=== PATIENT | female | born 1990 | race Caucasian/White ===

== ENCOUNTER 2019-10-14 10:24 | Outpatient (CLI) | payer BC ==
[2019-10-14 11:13] VITALS: BP 124/73; PULSE 116; RESP 18; TEMP 97.2
[2019-10-14 11:36] LABS: Total Volume 24 Hour,Urine 3050 mls (800-1800)
[2019-10-14 11:50] LABS: ALT 17 U/L (4-34); AST 19 U/L (14-36); African American GFR (CKD) >90 (>60 ml/min/1.73 sqM); Blood Urea Nitrogen 8 mg/dL (7-17); LDH 455 U/L (313-618); Non-African American GFR(CKD) >90 (>60 ml/min/1.73 sqM)
[2019-10-14 11:51] LABS: Total Protein 24 Hour,Urine 549 mg/24hr (42.0-225.0)
[2019-10-14 11:52] LABS: Basophils % (A) 0 %; Eosinophils # (A) 0.1 k/uL (0-0.7); Eosinophils % (A) 1 %; HCT 39.5 % (34.0-46.0); Lymphocytes # (A) 1.8 k/uL (1.0-4.8); Lymphocytes % (A) 18 %; MCH 28.4 pg (25.0-35.0); MCHC 32.8 g/dL (31.0-37.0); MCV 86.7 fL (80.0-100.0); Mean Platelet Volume 9.3; Monocytes # (A) 0.5 k/uL (0-1.0); Monocytes % (A) 5 %; Neutrophils # (A) 7.8 k/uL (1.3-7.7); Neutrophils % (A) 75 %; Platelet Count 198 k/uL (150-450); RBC 4.56 m/uL (3.80-5.40); RDW 13.5 % (11.5-15.5); WBC 10.4 k/uL (3.8-10.6)
--- NOTE | 2019-10-31 08:39 | P.MSEPDOC ---
Presenting Problems - Arrival Data Date of Arrival on Unit: 10/14/19 Time of Arrival on Unit: 10:24 Mode of Transport: Ambulatory - Complaint OB-Reason for Admission/Chief Complaint: Other Comment: pt sent to triage with lab slip for 24 hour urine collection, and PIH lab Medical History - Gestational Age Gestational Age by EBEN (wks/days): 36 Weeks and 2 Days - History Complications: GDM Comment: gest hypertension Review of Systems - Review of Systems Constitutional: No problems Breast: No problems ENT: No problems Cardiovascular: No problems Respiratory: No problems Gastrointestinal: No problems Genitourinary: No problems Musculoskeletal: No problems Neurological: No problems Skin: No problems Vital Signs - Temperature Temperature: 97.2 F Temperature Source: Temporal Artery Scan - Pulse Right Brachial Pulse Rate: 116 - Respirations Respiratory Rate: 18 Oxygen Delivery Method: Room Air - Blood Pressure Right Arm Blood Pressure: 124/73 Blood Pressure Mean: 90 Blood Pressure Source: Automatic Cuff Medical Screen Scoring (Pre) - Maternal Vital Signs Maternal Temperature: N/A Maternal Blood Pressure: N/A - Total Score - Baby A Total Score - Baby A: 0 - Total Score - Baby B Total Score - Baby B: 0 - Total Score - Baby C Total Score - Baby C: 0 - Level of Risk - Baby A Level of Risk - Baby A: Low (0-5) - Level of Risk - Baby B Level of Risk - Baby B: Low (0-5) - Level of Risk - Baby C Level of Risk - Baby C: Low (0-5) Physician Notification (Pre) - Physician Notified Physician Notified Date: 10/14/19 Physician Notified Time: 10:55 New Order Received: Yes - Notification Comment Comment: call with 24 hour urine protein and PIH results Disposition - Disposition OB Disposition: Discharge to home, Written follow up instructions reviewed Discharge Date: 10/14/19 Discharge Time: 12:20 I agree with the RN Medical Screening Exam: Yes Risk & Benefit of care provided described in d/c instruction: Yes Diagnosis: induced hypertension
== END 2019-10-14 12:20 | disposition home or self-care (01) ==
LOC: FBPOP 10:24
PROVIDERS: ATTEND Obstetrics & Gynecology
DX: O13.3 Gestational [pregnancy-induced] hypertension without significant proteinuria, third trimester (principal); Z3A.36 36 weeks gestation of pregnancy
CPT/HCPCS: 59025; 81050; 82565; 83615; 84156; 84450; 84460; 84520; 84550; 85025

== ENCOUNTER 2019-10-19 06:08 | Inpatient (IN) | payer BC ==
[2019-10-19] MEDS ORDERED: LACTATED RINGERS 1,000 ML IV ONE (06:31)
[2019-10-19] MEDS ORDERED: CITRIC ACID-SODIUM CITRATE 15 ML CUP PO ONE (06:31)
[2019-10-19 06:42] LABS: Basophils % (A) 0 %; Eosinophils # (A) 0.2 k/uL (0-0.7); Eosinophils % (A) 1 %; HGB 12.7 gm/dL (11.4-16.0); Lymphocytes # (A) 2.4 k/uL (1.0-4.8); Lymphocytes % (A) 20 %; MCH 27.7 pg (25.0-35.0); MCHC 32.5 g/dL (31.0-37.0); MCV 85.3 fL (80.0-100.0); Mean Platelet Volume 9.4; Monocytes # (A) 0.7 k/uL (0-1.0); Monocytes % (A) 5 %; Neutrophils # (A) 8.7 k/uL (1.3-7.7); Neutrophils % (A) 71 %; Platelet Count 200 k/uL (150-450); RBC 4.57 m/uL (3.80-5.40); RDW 13.7 % (11.5-15.5); WBC 12.2 k/uL (3.8-10.6)
[2019-10-19 06:56] LABS: INR 0.9 (<1.2); Prothrombin Time 9.3 sec (9.0-12.0)
[2019-10-19 07:02] LABS: Partial Thromboplastin Time 20.7 sec (22.0-30.0)
[2019-10-19 07:42] LABS: Glucose,Whole Blood 113 mg/dL (75-99)
--- NOTE | 2019-10-19 07:54 | P.HPOB ---
History of Present Illness H&P Date: 10/19/19 Chief Complaint: Preeclampsia at 37 weeks gestation This is a 29-year-old 1 para 0 woman with an estimated due date of 11/09/2019 by first trimester ultrasound who presents for primary section at 37 weeks secondary to preeclampsia. She has had sudden increase in blood pressures starting at approximately 36 weeks. 24-hour urine protein was elevated at 529 mg per 24 hours. She has been monitoring home blood pressures that ranged in the 130s to 140s over 80s to 90s. Remainder of her laboratory data was within normal limits. Sylvie elevated out of the decision was made to deliver at 37 weeks. The patient's history is also significant for history of cervical had no abnormal carcinoma in situ status post cervical cold knife cone biopsy. Examination of the cervix throughout the reveals a tightly knotted and thickly scarred closed cervix. This is unchanged. We discussed the cervical ripening versus primary section for delivery and after discussing pros and cons of each the patient elects for primary section. She also has diet-controlled gestational diabetes. Her blood sugars have been very well controlled throughout the . This morning the patient is feeling very good. She denies headaches, visual c hanges, nausea, vomiting, abdominal pain. She does have some swelling of the lower extremities. She's had good movement and denies contractions. Laboratory data: Blood type A positive, antibody screen negative, rubella immune, VDRL nonreactive, hep Meera surface antigen negative, HIV negative, gonorrhea and clinic cultures negative, glucose tolerance testing abnormal, group B strep negative. Review of Systems All systems: negative Past Medical History Past Medical History: Cancer, Diabetes Mellitus, Hypertension Additional Past Medical History / Comment(s): induced HTN, Gestational Diabetes. Hx Stage 0 cervical cancer 2017. Edema ankles occ. History of Any Multi-Drug Resistant Organisms: None Reported Past Surgical History: No Surgical Hx Reported Additional Past Surgical History / Comment(s): [place] teeth. Cone biopsy Past Anesthesia/Blood Transfusion Reactions: No Reported Reaction Past Psychological History: No Psychological Hx Reported Smoking Status: Never smoker Past Alcohol Use History: Occasional Additional Past Alcohol Use History / Comment(s): No current alcohol use Past Drug Use History: None Reported - Past Family History Father Family Medical History: Hyperlipidemia, Hypertension Medications and Allergies Home Medications Medication Instructions Recorded Confirmed Type Pnv No.95/Ferrous Fum/Folic AC 1 each PO DAILY 09/07/19 10/19/19 History [ Multivitamin Tablet] Allergies Allergy/AdvReac Type Severity Reaction Status Date / Time No Known Allergies Allergy Verified 10/19/19 06:30 Exam Vital Signs Temp Pulse Resp BP Pulse Ox 10/19/19 06:29 96.9 F L 118 H 18 143/95 97 Intake and Output 10/18/19 10/19/19 10/19/19 22:59 06:59 14:59 Other: Weight 114.305 kg This is a pleasant, visibly gravid female in no obvious distress. HEENT exam is unremarkable. Her breathing is unlabored and her heart is a regular rate and rhythm. The abdomen is gravid with a fundal height of approximately 40 cm. Pelvic examination is deferred however recently in the office the cervix was firm, thick and closed with no discernible cervical os palpable. She has 2+ bilateral lower extremity edema and 2+ deep tendon reflexes. She has a category 1 heart rate tracing and is not denise. Results Result Diagrams: 10/19/19 06:30 Abnormal Lab Results - Last 24 Hours (Table) 10/19/19 10/19/19 10/19/19 Range/Units 06:30 06:30 07:30 WBC 12.2 H (3.8-10.6) k/uL Neutrophils # 8.7 H (1.3-7.7) k/uL APTT 20.7 L (22.0-30.0) sec POC Glucose (mg/dL) 113 H (75-99) mg/dL Assessment and Plan (1) 37 weeks gestation of Current Visit: Yes Status: Acute Code(s): Z3A.37 - 37 WEEKS GESTATION OF SNOMED Code(s): 01518822 (2) Preeclampsia Current Visit: Yes Status: Acute Code(s): O14.90 - UNSPECIFIED PRE- ECLAMPSIA, UNSPECIFIED TRIMESTER SNOMED Code(s): 275969644 (3) Gestational diabetes Current Visit: Yes Status: Acute Code(s): O24.419 - GESTATIONAL DIABETES MELLITUS IN , UNSP CONTROL SNOMED Code(s): 12534502 (4) Carcinoma in situ of cervix Current Visit: No Status: Acute Code(s): D06.9 - CARCINOMA IN SITU OF CERVIX, UNSPECIFIED SNOMED Code(s): 69961588 Plan: 29 year old 1 para 0 woman admitted at 37 weeks gestation for primary low transverse section secondary to recent diagnosis of preeclampsia and unfavorable, scarred cervix secondary to history of cervical adenocarcinoma in situ. We reviewed the risks of to include bleeding, infection, transfusion, injury to bowel, bladder, ureters and her other pelvic structures and or the infant. We discussed the small possibility of Occasions of prematurity at 37 weeks gestation. We also discussed implications for future pregnancies. We reviewed this against risk of failed induction with history of scarred cervix from previous surgery. All questions were answered the patient and her agreed to proceed. Admission blood pressures were in the 140s over 90s and she is currently asymptomatic. Magnesium sulfate not indicated at this time.
[2019-10-19] MEDS ORDERED: PHENYLEPHRINE-0.9% NACL SYG 1 MG/10 ML SYRINGE ONE (08:00)
[2019-10-19] MEDS ORDERED: OXYTOCIN 10 UNIT/ML 1 ML VIAL ONE (08:00)
[2019-10-19] MEDS ORDERED: NALBUPHINE 10 MG/ML (1 ML AMP) ONE (08:00)
[2019-10-19] MEDS ORDERED: KETOROLAC 30 MG/ML 1 ML VIAL ONE (08:00)
[2019-10-19] MEDS ORDERED: ONDANSETRON 4 MG/2 ML VIAL ONE (08:00)
[2019-10-19] MEDS ORDERED: MORPHINE SULFATE (PF) 0.3 MG/0.3 ML SYR ONE (08:00)
[2019-10-19] MEDS ORDERED: NALOXONE 0.4 MG/ML 1 ML VIAL IV PRN ×2 (08:40→09:05)
[2019-10-19] MEDS ORDERED: diphenhydrAMINE 50 MG/ML 1 ML VIAL IVP PRN ×3 (08:40→09:05)
[2019-10-19] MEDS ORDERED: ONDANSETRON 4 MG/2 ML VIAL IVP PRN ×2 (08:40→09:05)
[2019-10-19] MEDS ORDERED: HYDROmorphone 0.5 MG/0.5 ML SYRINGE IVP PRN (08:40)
[2019-10-19] MEDS ORDERED: diphenhydrAMINE 25 MG CAP PO PRN (09:05)
[2019-10-19] MEDS ORDERED: diphenhydrAMINE 50 MG CAP PO PRN (09:05)
[2019-10-19] MEDS ORDERED: ZOLPIDEM 5 MG TAB PO PRN (09:05)
[2019-10-19] MEDS ORDERED: METOCLOPRAMIDE 5 MG/ML 2 ML VIAL IVP PRN (09:05)
--- NOTE | 2019-10-19 09:05 | P.OP ---
Date of Procedure: 10/19/19 Preoperative Diagnosis: Intrauterine at 37 weeks gestation Preeclampsia Gestational hypertension Maternal history of cervical adenocarcinoma, cervical scarring Postoperative Diagnosis: Same Procedure(s) Performed: Primary low transverse section Anesthesia: spinal Surgeon: Sara Barrett Animal Care Taker #1: Roberta Chowdhury Estimated Blood Loss (ml): 400 IV fluids (ml): 1,200 Urine output (ml): 100 Pathology: other (Placenta) Condition: stable Disposition: floor Indications for Procedure: This is a 29-year-old 1 para 0 woman who is diagnosed with preeclampsia at 35 weeks gestation based on elevated blood pressures and elevated 24-hour urine protein. She was conservatively managed until 37 weeks at which time delivery was planned. Her cervix is thick and scarred with an obscured cervical os therefore the decision was made to deliver by primary section. Patient's was also located by gestational diabetes, well-controlled with diet. Operative Findings: Male infant in the vertex presentation with Apgars of 8 at 1 minute and 8 at 5 minutes weighing 6 lbs. 15 oz., 3140 g. Normal-appearing bilateral uterus fallopian tubes and ovaries. Intact three-vessel cord placenta. Description of Procedure: After the patient and her were met in the preoperative holding area and all questions were answered, she was taken the operating room where anesthetic was administered without incident. She was in positioned, prepped and draped in the dorsal supine position with a leftward tilt. Anesthetic was confirmed adequate and a low transverse skin incision was made and carried down to the underlying fascia sharply. The fascia was incised in the midline and extended bilaterally with the Araya scissors. The inferior and superior aspects of fascial incision were grasped, elevated and the underlying rectus muscles dissected off sharply. The rectus muscles were bluntly in the midline and the peritoneum was tented up and entered sharply. The peritoneal incision was extended inferiorly and superiorly with good visualization of the bladder. The bladder blade was placed. Of note there was significant venous sinus noted on the anterior low uterine segment. This is in the area of the low transverse incision. With manual compression above and below the area of the planned incision a blanched nonvascular window was created. The incision was made in this area and easily carried down to the underlying amniotic membranes. Membranes were ruptured and clear fluid was noted. The incision was extended bilaterally bluntly. The 's head was delivered from the incision and the nose and mouth were bulb suctioned. The rest the infant was delivered onto the field with the nose and mouth were further bulb suctioned. The cord was clamped and cut and the infant was taken to the warmer. Apgars were 8 at 1 minute and 8 at 5 minutes and weight was 6 lbs. 15 oz. An intact, three-vessel cord placenta was manually removed. The uterus is exteriorized and cleared of all clot and debris. The uterine incision was closed in a running locked fashion with 0 Vicryl suture. Additional [id number] sutures were placed on the lower aspect of the incision where the venous sinus was noted. Hemostasis was noted. The gutters were cleared of all clot and debris and the uterus was returned to the abdomen. The uterine incision was reinspected and noted to be hemostatic. The rectus muscles, peritoneal edges and fascial edges were inspected and noted to be hemostatic. The fascia was then closed in a running fashion with 0 Vicryl suture in halves. The subcuticular tissue was copiously suction irrigated and closed with 3-0 chromic. The skin was then closed in a subcutaneous fashion with 4-0 Vicryl suture. Dressing was applied. All counts reported to me as correct by the operating room staff. Of note on bimanual examination the cervix remains firmly closed with scant lochia. The uterus is small and approximate 4 cm below the level of the umbilicus. The patient did receive Pitocin after removal of the placenta and antibiotics preoperatively. blood pressures were 150s over 90s at the end of the procedure.
[2019-10-19] MEDS ORDERED: LACTATED RINGERS 1,000 ML IV SCH (09:15)
[2019-10-19] MEDS ORDERED: OXYTOCIN 20 UNITS/1000 ML NS 1,000 ML IV SCH (09:15)
[2019-10-19] MEDS: KETOROLAC 30 MG/ML 1 ML VIAL IVP PRN ×2 (14:37→21:10)
[2019-10-19] MEDS: SENNOSIDES-DOCUSATE SODIUM 1 EACH TAB PO SCH (19:46)
[2019-10-20] MEDS: KETOROLAC 30 MG/ML 1 ML VIAL IVP PRN (03:45)
[2019-10-20 05:55] LABS: Basophils % (A) 0 %; Eosinophils # (A) 0.1 k/uL (0-0.7); Eosinophils % (A) 1 %; HCT 30.9 % (34.0-46.0); Lymphocytes # (A) 1.7 k/uL (1.0-4.8); Lymphocytes % (A) 14 %; MCH 27.5 pg (25.0-35.0); MCHC 31.5 g/dL (31.0-37.0); MCV 87.3 fL (80.0-100.0); Mean Platelet Volume 10.1; Monocytes # (A) 0.7 k/uL (0-1.0); Monocytes % (A) 6 %; Neutrophils # (A) 9.6 k/uL (1.3-7.7); Neutrophils % (A) 77 %; Platelet Count 158 k/uL (150-450); RBC 3.54 m/uL (3.80-5.40); WBC 12.4 k/uL (3.8-10.6)
[2019-10-20 05:59] LABS: HGB 9.8 gm/dL (11.4-16.0)
[2019-10-20] MEDS: SENNOSIDES-DOCUSATE SODIUM 1 EACH TAB PO SCH ×2 (08:43→20:41)
[2019-10-20] MEDS: IBUPROFEN 600 MG TAB PO PRN ×2 (09:40→17:07)
--- NOTE | 2019-10-20 09:48 | P.PN ---
Subjective Progress Note Date: 10/20/19 Principal diagnosis: Doing well post operative day #1 Denies headache, visual changes, or right upper quadrant pain. Feeling well. Positive flatus. Objective - Vital Signs Vital signs: Vital Signs Temp 97.8 F 10/20/19 08:00 Pulse 106 H 10/20/19 08:00 Resp 16 10/20/19 08:00 BP 117/82 10/20/19 08:00 Pulse Ox 99 10/20/19 03:55 Intake & Output 10/19/19 10/20/19 10/20/19 18:59 06:59 18:59 Intake Total 1200 Output Total 900 450 Balance 300 -450 Intake: IV 1200 Output: Urine 500 450 Estimated Blood Loss 400 Other: Voiding Method Indwelling Catheter Toilet # Voids 1 1 - Constitutional General appearance: Present: average body habitus, cooperative - EENT Eyes: Present: PERRLA ENT: Present: hearing grossly normal - Neck Neck: Present: normal ROM - Respiratory Respiratory: bilateral: CTA - Cardiovascular Rhythm: regular - Gastrointestinal Gastrointestinal Comment(s): Fundus firm, midline, symmetric, 18 week size. Incision clean and dry, intact, Steri-Strips applied. General gastrointestinal: Present: normal bowel sounds - Integumentary Integumentary: Present: normal - Neurologic Neurologic: Present: CNII-XII intact - Musculoskeletal Musculoskeletal: Present: gait normal, strength equal bilaterally - Psychiatric Psychiatric: Present: A&O x's 3, appropriate affect, intact judgment & insight - Labs CBC & Chem 7: 10/20/19 05:35 Labs: Abnormal Lab Results - Last 24 Hours (Table) 10/20/19 Range/Units 05:35 WBC 12.4 H (3.8-10.6) k/uL RBC 3.54 L (3.80-5.40) m/uL Hgb 9.8 L D (11.4-16.0) gm/dL Hct 30.9 L (34.0-46.0) % Neutrophils # 9.6 H (1.3-7.7) k/uL Assessment and Plan Assessment: Doing well day #1. Blood pressure normalized. in nursery. Plan: Continue care. Advanced diet and activity. Time with Patient: Less than 30
[2019-10-20] MEDS: HYDROcodone/APAP 5-325MG 1 EACH TAB PO PRN ×2 (12:54→20:16)
[2019-10-21] MEDS: IBUPROFEN 600 MG TAB PO PRN ×4 (00:21→20:24)
[2019-10-21] MEDS: HYDROcodone/APAP 5-325MG 1 EACH TAB PO PRN ×3 (03:17→17:18)
--- NOTE | 2019-10-21 07:41 | P.PN ---
Progress Note - Text Progress Note Date: 10/20/19 Patient was seen 10/20/2019 for post op round from spinal duramorph. doing well, no parasthesia, weakness, bowel/bladder incontinence. Able to ambulate and was passing flatus and able to micturate on her own.
--- NOTE | 2019-10-21 07:44 | P.PN ---
Subjective Progress Note Date: 10/21/19 Principal diagnosis: Doing well postoperative day number two Denies headache, visual changes, right upper quadrant pain. Feeling well this morning. No complaints Objective - Vital Signs Vital signs: Vital Signs Temp 97.9 F 10/21/19 00:00 Pulse 89 10/21/19 00:00 Resp 18 10/21/19 00:00 BP 125/85 10/21/19 00:00 Pulse Ox 100 10/21/19 00:00 Intake & Output 10/20/19 10/21/19 10/21/19 18:59 06:59 18:59 Other: # Voids 1 2 # Bowel Movements 1 - Constitutional General appearance: Present: average body habitus, cooperative - EENT Eyes: Present: PERRLA ENT: Present: hearing grossly normal - Respiratory Respiratory: bilateral: CTA - Cardiovascular Rhythm: regular - Gastrointestinal General gastrointestinal: Present: normal bowel sounds - Integumentary Integumentary Comment(s): Incision clean and dry, intact, Steri-Strips applied. Fundus firm, midline, symmetric, 18 week size Integumentary: Present: normal - Neurologic Neurologic: Present: CNII-XII intact - Musculoskeletal Musculoskeletal: Present: gait normal, strength equal bilaterally - Psychiatric Psychiatric: Present: A&O x's 3, appropriate affect, intact judgment & insight - Labs CBC & Chem 7: 10/20/19 05:35 Assessment and Plan Assessment: Doing well postoperative day #2. [place] in nursery off all oxygen, improving. Plan: Continue care. Possible discharge home tomorrow.
[2019-10-21] MEDS: SENNOSIDES-DOCUSATE SODIUM 1 EACH TAB PO SCH ×2 (08:00→19:34)
[2019-10-21] MEDS: ACETAMINOPHEN TAB 325 MG TAB PO PRN (23:26)
[2019-10-22] MEDS: IBUPROFEN 600 MG TAB PO PRN ×4 (02:30→22:13)
[2019-10-22] MEDS: ACETAMINOPHEN TAB 325 MG TAB PO PRN ×3 (04:27→18:25)
--- NOTE | 2019-10-22 07:35 | P.PNOBGPC ---
Subjective - Subjective Principal diagnosis: Postop day 3 status post primary section Interval history: Finding of increase in uterine denise over the last 12 hours with some increase in lochia. Lochia still remains on minimal approximately 1 pad every several hours. Patient reports: Reports appetite normal, Reports voiding normally, Reports pain well controlled, Reports ambulating normally, Denies dizzy ambulation, Denies nauseated : doing well (With feeding issues and nursery) Objective - Vital Signs Latest vital signs: Vital Signs Temp Pulse Resp BP Pulse Ox 10/21/19 23:50 98.4 F 100 18 129/85 97 10/21/19 14:52 98.4 F 105 H 18 123/78 10/21/19 07:42 98 F 89 18 126/74 Intake and Output 10/21/19 10/22/19 10/22/19 22:59 06:59 14:59 Other: # Voids 2 # Bowel Movements 2 - Exam Lungs: bilateral: normal Extremities: Present: normal, edema Abdomen: Present: normal appearance, soft. Absent: tenderness Incision: Present: normal, dry, intact. Absent: erythematous Uterus: Present: normal, firm. Absent: tenderness Assessment and Plan (1) 37 weeks gestation of Current Visit: Yes Status: Acute Code(s): Z3A.37 - 37 WEEKS GESTATION OF SNOMED Code(s): 19201058 (2) Preeclampsia Current Visit: Yes Status: Acute Code(s): O14.90 - UNSPECIFIED PRE- ECLAMPSIA, UNSPECIFIED TRIMESTER SNOMED Code(s): 770939922 (3) Gestational diabetes Current Visit: Yes Status: Acute Code(s): O24.419 - GESTATIONAL DIABETES MELLITUS IN , UNSP CONTROL SNOMED Code(s): 32019260 (4) Carcinoma in situ of cervix Current Visit: No Status: Acute Code(s): D06.9 - CARCINOMA IN SITU OF CERVIX, UNSPECIFIED SNOMED Code(s): 70661380 Plan: Postop day 3 status post primary low transverse section for preeclampsia. Blood pressures have normalized. She is having some increase in uterine denise likely secondary to her cervical scarring. Recommended continued ibuprofen alternating with Tylenol as needed for pain. Anticipate discharge home tomorrow.
[2019-10-22] MEDS: SENNOSIDES-DOCUSATE SODIUM 1 EACH TAB PO SCH ×2 (08:53→20:12)
[2019-10-22 11:58] VITALS: RESP 16
[2019-10-23] MEDS: ACETAMINOPHEN TAB 325 MG TAB PO PRN ×2 (02:19→09:43)
[2019-10-23] MEDS: IBUPROFEN 600 MG TAB PO PRN (06:31)
--- NOTE | 2019-10-23 09:37 | P.DS ---
Providers Date of admission: 10/19/19 06:08 Expected date of discharge: 10/23/19 Attending physician: Sara Barrett Primary care physician: Stated None - Discharge Diagnosis(es) (1) 37 weeks gestation of Current Visit: Yes Status: Acute (2) Preeclampsia Current Visit: Yes Status: Acute (3) Gestational diabetes Current Visit: Yes Status: Acute (4) Carcinoma in situ of cervix Current Visit: No Status: Acute Hospital Course: This is a 29-year-old 1 now para 1 woman who was admitted for primary low transverse section at 37 weeks gestation secondary to preeclampsia. She has a history of carcinoma in situ of the cervix with a tightly scarred cervix. Please see history and physical for details. Following admission the patient underwent an uncomplicated primary low transverse section. Findings at the time of surgery were significant for a liveborn male weighing 6 lbs. 15 oz. with Apgars of 8 at 1 minute and 8 at 5 minutes. The infant was admitted to the special care nursery with the transient tachypnea of . The patient's blood pressures did essentially normalized following delivery. By postoperative day #1 she was ambulating and voiding without difficulty. Her pain was well-controlled. She transitioned to a regular diet. Postoperative day #2 and 3 were also unremarkable. She did have some increase in uterine cramping on postoperative day #3 and did eventually passed some large clots and debris. Prior to this she had very scant lochia likely secondary to her closed cervix. On the morning of postoperative day #4 she was feeling very well. She had resolution of her uterine cramping and minimal lochia. Her blood pressures remained consistently in the 130s over 80s. Her swelling of her lower extremities was improving. Her incision appears well healing, intact and without erythema. The remains in the nursery on room air however with assistance for feeding. Patient is discharged home on postoperative day #4 with routine instructions for care and follow-up. She will return to the office for blood pressure check in 1 week. Procedures: Primary low transverse section Patient Condition at Discharge: Good Plan - Discharge Summary New Discharge Prescriptions: New Ibuprofen [Motrin] 600 mg PO Q6HR PRN tab PRN Reason: Mild Pain Or Fever >= 100.5 Acetaminophen Tab [Tylenol] 650 mg PO Q4HR PRN tab PRN Reason: Mild Pain Or Fever >= 100.5 No Action Pnv No.95/Ferrous Fum/Folic AC [ Multivitamin Tablet] 1 each PO DAILY Discharge Medication List Pnv No.95/Ferrous Fum/Folic AC [ Multivitamin Tablet] 1 each PO DAILY 09/07/19 [History] Acetaminophen Tab [Tylenol] 650 mg PO Q4HR PRN tab 10/23/19 [Rx] Ibuprofen [Motrin] 600 mg PO Q6HR PRN tab 10/23/19 [Rx] Follow up Appointment(s)/Referral(s): Sara Barrett MD [STAFF PHYSICIAN] - 10 Days Activity/Diet/Wound Care/Special Instructions: Follow-up in 2 weeks after surgery in the office. Call the office with any concerning signs or symptoms including fever greater than 101, severe abdominal pain, heavy vaginal bleeding, signs of wound infection, increased swelling or redness of the lower extremities, headache or visual changes, signs of depression. No driving for 2 weeks after surgery. No heavy lifting or vigorous activity until reevaluated in the office. No intercourse for 6 weeks after delivery. Discharge Disposition: HOME SELF-CARE
[2019-10-23 09:56] VITALS: BP 130/89; PULSE 103; TEMP 97.9
== END 2019-10-23 10:10 | disposition home or self-care (01) | DRG 788 ==
LOC: 4FBP 06:08 → MERGE 08:00
PROVIDERS: ADMIT Obstetrics & Gynecology; ATTEND Obstetrics & Gynecology
PROC: 10D00Z1 Extraction of Products of Conception, Low, Open Approach (ICD-10-PCS; principal; 2019-10-19)
DX: O14.94 Unspecified pre-eclampsia, complicating childbirth (principal); Z37.0 Single live birth; O24.420 Gestational diabetes mellitus in childbirth, diet controlled; Z3A.37 37 weeks gestation of pregnancy; Z79.899 Other long term (current) drug therapy; Z85.41 Personal history of malignant neoplasm of cervix uteri; Z82.49 Family history of ischemic heart disease and other diseases of the circulatory system; Z83.438 Family history of other disorder of lipoprotein metabolism and other lipidemia
CPT/HCPCS: 85025; 85610; 85730; 86850; 86900; 86901; 88307

== ENCOUNTER → 2021-11-14 | Outpatient (CLI) | payer BC ==
[2021-11-14 17:06] LABS: HCT 38.3 % (37.2-46.3); HGB 12.6 g/dL (12.0-15.0); MCH 28.9 pg (27.0-32.0); MCHC 32.9 g/dL (32.0-37.0); MCV 87.8 fL (80.0-97.0); Mean Platelet Volume 10.6 fL (9.5-12.2); NRBC Per 100 WBC 0 /100 WBCS (0.0-0.0); Platelet Count 193 X 10*3/uL (140-440); RBC 4.36 X 10*6/uL (4.10-5.20); RDW 13.2 % (11.5-14.5)
[2021-11-14 17:16] LABS: Uric Acid 4.1 mg/dL (2.9-7.7)
== END | disposition home or self-care (01) ==
LOC: LABWHC1 10:23
PROVIDERS: ATTEND Obstetrics & Gynecology
DX: O13.3 Gestational [pregnancy-induced] hypertension without significant proteinuria, third trimester (principal); Z3A.00 Weeks of gestation of pregnancy not specified
CPT/HCPCS: 36415; 84450; 84460; 84550; 85027

== ENCOUNTER 2021-11-30 06:15 | Inpatient (IN) | payer BC ==
[2021-11-30] MEDS ORDERED: CITRIC ACID-SODIUM CITRATE 15 ML CUP PO ONE (06:44)
[2021-11-30] MEDS ORDERED: LACTATED RINGERS 1,000 ML IV ONE (06:44)
[2021-11-30 07:04] LABS: Basophils # (A) 0.1 k/uL (0-0.2); Basophils % (A) 1 %; Eosinophils # (A) 0.3 k/uL (0-0.7); Eosinophils % (A) 2 %; HCT 40.1 % (34.0-46.0); HGB 13.3 gm/dL (11.4-16.0); Lymphocytes # (A) 2.8 k/uL (1.0-4.8); Lymphocytes % (A) 22 %; MCH 28.9 pg (25.0-35.0); MCHC 33.1 g/dL (31.0-37.0); MCV 87.4 fL (80.0-100.0); Mean Platelet Volume 8.8; Monocytes # (A) 0.7 k/uL (0-1.0); Monocytes % (A) 6 %; Neutrophils # (A) 8.5 k/uL (1.3-7.7); Neutrophils % (A) 68 %; Platelet Count 194 k/uL (150-450); RBC 4.59 m/uL (3.80-5.40); WBC 12.5 k/uL (3.8-10.6)
[2021-11-30] MEDS ORDERED: MORPHINE SULFATE (PF) 0.3 MG/0.3 ML SYR ONE (08:06)
[2021-11-30] MEDS ORDERED: OXYTOCIN 10 UNIT/ML 1 ML VIAL ONE (08:06)
[2021-11-30] MEDS ORDERED: OXYTOCIN 30 UNITS/500 ML NS BAG IV ONE (08:06)
[2021-11-30] MEDS ORDERED: ONDANSETRON 4 MG/2 ML VIAL ONE (08:06)
[2021-11-30] MEDS ORDERED: KETOROLAC 15 MG/ML 1 ML VIAL ONE (08:06)
[2021-11-30] MEDS ORDERED: NALBUPHINE 10 MG/ML (1 ML AMP) ONE (08:06)
[2021-11-30] MEDS ORDERED: fentaNYL (PF) 50 MCG/ML 2 ML AMP ONE (08:06)
[2021-11-30] MEDS ORDERED: NALOXONE 0.4 MG/ML 1 ML VIAL IV PRN (09:10)
[2021-11-30] MEDS ORDERED: diphenhydrAMINE 25 MG CAP PO PRN (09:10)
[2021-11-30] MEDS ORDERED: diphenhydrAMINE 50 MG/ML 1 ML VIAL IVP PRN ×2 (09:10)
[2021-11-30] MEDS ORDERED: diphenhydrAMINE 50 MG CAP PO PRN (09:10)
[2021-11-30] MEDS ORDERED: ONDANSETRON 4 MG/2 ML VIAL IVP PRN (09:10)
[2021-11-30] MEDS ORDERED: ZOLPIDEM 5 MG TAB PO PRN (09:10)
[2021-11-30] MEDS ORDERED: SIMETHICONE 80 MG CHEWABLE PO PRN (09:10)
[2021-11-30] MEDS ORDERED: METOCLOPRAMIDE 5 MG/ML 2 ML VIAL IVP PRN (09:10)
[2021-11-30] MEDS ORDERED: HYDROmorphone 2 MG TAB PO PRN (09:10)
[2021-11-30] MEDS ORDERED: HYDROmorphone 1 MG/ML 1 ML SYRINGE IVP PRN (09:10)
[2021-11-30] MEDS ORDERED: OXYTOCIN 30 UNITS/500 ML NS 30 UNIT in SALINE 1 500ML.BAG IV SCH (09:15)
--- NOTE | 2021-11-30 09:32 | P.HPOB ---
History of Present Illness H&P Date: 11/30/21 Chief Complaint: , previous section This is a 31-year-old 2 para 1001 woman with an estimated due date of 12/06/2021 based on LMP consistent with early ultrasound. She presents at 39 weeks gestation for scheduled repeat low transverse section. She had a history of a previous LTCS and declined trial of labor. has been monitored for elevated blood pressure however preeclampsia has been ruled out by 24-hour urine protein recently. Today she is feeling well. She denies headaches, visual changes, abdominal pain, contractions or leakage of fluids. The good movement. Laboratory data: Blood type A+, antibody screen negative, rubella immune, VDRL nonreactive, hep Meera surface antigen negative, gonorrhea and clinic cultures negative, HIV negative, glucose tolerance testing within normal limits, group B strep negative. Obstetric history: Primary low transverse section at 37 weeks for preeclampsia and failure to progress in 2020. Review of Systems All systems: negative Past Medical History Past Medical History: Cancer, Diabetes Mellitus, Hypertension Additional Past Medical History / Comment(s): induced HTN, Gestational Diabetes. Hx Stage 0 cervical cancer 2017. Edema ankles occ. History of Any Multi-Drug Resistant Organisms: None Reported Past Surgical History: No Surgical Hx Reported Additional Past Surgical History / Comment(s): [place] teeth. Cone biopsy Past Anesthesia/Blood Transfusion Reactions: No Reported Reaction Past Psychological History: No Psychological Hx Reported Smoking Status: Never smoker Past Alcohol Use History: Occasional Additional Past Alcohol Use History / Comment(s): No current alcohol use Past Drug Use History: None Reported - Past Family History Father Family Medical History: Hyperlipidemia, Hypertension Medications and Allergies Home Medications Medication Instructions Recorded Confirmed Type Pnv No.95/Ferrous Fum/Folic AC 1 each PO DAILY 09/07/19 11/30/21 History [ Multivitamin Tablet] Allergies Allergy/AdvReac Type Severity Reaction Status Date / Time No Known Allergies Allergy Verified 11/30/21 06:43 Exam Vital Signs Temp Pulse Resp BP Pulse Ox 11/30/21 06:45 98.4 F 103 H 16 144/85 98 Intake and Output 11/29/21 11/30/21 11/30/21 22:59 06:59 14:59 Other: Weight 113.398 kg This is a pleasant comfortable and visibly gravid female in no apparent distress. HEENT exam is unremarkable. Lungs are clear to auscultation bilaterally. Heart is a regular rate and rhythm. The abdomen is gravid, soft and nontender. Pelvic examination is deferred. She has 1+ bilateral lower extremity edema. status is reassuring by external monitoring, category 1. Results Result Diagrams: 11/30/21 06:45 Abnormal Lab Results - Last 24 Hours (Table) 11/30/21 Range/Units 06:45 WBC 12.5 H (3.8-10.6) k/uL Neutrophils # 8.5 H (1.3-7.7) k/uL Assessment and Plan (1) 39 weeks gestation of Current Visit: Yes Status: Acute Code(s): Z3A.39 - 39 WEEKS GESTATION OF SNOMED Code(s): 17299959 (2) History of Current Visit: Yes Status: Acute Code(s): Z98.891 - HISTORY OF UTERINE SCAR FROM PREVIOUS SURGERY SNOMED Code(s): 011563814 Plan: 31-year-old 2 para 1001 woman admitted at 39 weeks for scheduled repeat low transverse section. She denies trial of labor. The procedure, risk and benefits have been reviewed with the patient on multiple occasions in the office. Still include but are not limited to bleeding, transfusion, infection, damage to bowel, bladder, ureters and/or other infant or maternal structures. Consent has been obtained. She declines bilateral tubal ligation about had been previously discussed. status is currently reassuring by external monitoring.
--- NOTE | 2021-11-30 09:40 | P.OP ---
Date of Procedure: 11/30/21 Preoperative Diagnosis: Intrauterine at 39 weeks gestation History of previous low transverse section Postoperative Diagnosis: Same Procedure(s) Performed: Repeat low transverse section Anesthesia: spinal Surgeon: Sara Barrett [employer] Crew Leader #1: Cyndee Aquino Estimated Blood Loss (ml): 320 IV fluids (ml): 1,000 Urine output (ml): 550 Pathology: none sent Condition: stable Disposition: floor Indications for Procedure: Intrauterine at 39 weeks gestation with history of previous low transverse section, declines trial of labor Operative Findings: Female infant in the vertex presentation with Apgars of 9 at 1 minute and 9 at 5 minutes weighing 7 lbs. 1 oz., 3210 g. Extensive anterior abdominal wall scarring involving the rectus muscles, underlying omentum and fascia mainly on the left. Normal-appearing bilateral fallopian tubes and ovaries. Thin lower uterine segment. Description of Procedure: After the patient was met preoperatively and all questions were answered, she was taken to the operating room where spinal anesthetic was administered without incident. She was then positioned, prepped and draped in the dorsal supine position with a leftward tilt. Kincaid catheter was placed. After anesthetic was confirmed adequate, a low transverse skin incision was made following the pre-existing scar. This was carried down to the underlying fascia both sharply and with the electrocautery. The fascia was then incised in the midline and extended bilaterally with the Araya scissors. The dissection specifically on the left side was more difficult secondary to scarring. There was a hernia or window in this area through which there was omentum protruding. This was carefully dissected away in order to fully visualize the anatomy. The superior aspect of the fascial incision was elevated and the underlying rectus muscles dissected off sharply and with the electrocautery. The inferior aspect of the fascial incision was also elevated and the underlying rectus muscles dissected off sharply. The muscles were adherent in the midline. These were bluntly and the peritoneum was tented up with hemostats. The peritoneum was entered sharply with the Metzenbaum scissors. The peritoneal incision was extended inferiorly and superiorly with good visualization of the bladder. The bladder blade was placed. The vesicouterine peritoneum was identified, tented up and entered sharply, the bladder flap was created both sharply and digitally. The low uterine segment was very thin. A low transverse uterine incision was then made sharply and carried down to the underlying amniotic membranes. Membranes were ruptured and clear fluid was noted. The uterine incision was extended bilaterally bluntly. The 's head was delivered from the incision without difficulty. The nose and mouth were bulb suctioned. The rest of the was delivered onto the field without difficulty. And cut and the was taken to the warmer. An intact, three-vessel cord placenta was then manually removed and the uterus was exteriorized. The uterus was cleared of all clot and debris. The uterine incision was delineated with Gómez clamps. The uterine incision was then closed in a running locked fashion with 0 Vicryl suture. A second imbricating layer of the same was placed. Additional [id number] sutures were placed where necessary along the incision for hemostasis. The uterus was then returned to the abdomen and the gutters were cleared of all clot and debris. The uterine incision was reinspected and Bovie electrocautery was utilized were necessary for hemostasis. The fascial edges, peritoneal edges and rectus muscles were inspected and Bovie electrocautery utilized were necessary for hemostasis. The defects in the rectus muscles were brought together carefully with interrupted sutures in the midline with excellent reconstruction of and reduction of the irregular area. Fascia was then closed. The fascia was then closed in a running fashion with 0 Vicryl suture. The subcuticular tissue was copiously suction irrigated and Bovie electrocautery utilized were necessary for hemostasis. 3-0 Vicryl suture was utilized to reapproximate the subcuticular tissue. The skin was then closed in a subcutaneous fashion with 4-0 Vicryl suture. All counts reported to me as correct by the operating room staff at the end of the procedure. The patient received antibiotics preoperatively and Pitocin following cord clamp. Mother and were both transported from the room in stable condition.
[2021-11-30] MEDS: LACTATED RINGERS 1,000 ML IV SCH ×2 (09:48→14:04)
[2021-11-30] MEDS: ACETAMINOPHEN TAB 500 MG TAB PO SCH ×2 (13:05→21:36)
[2021-11-30] MEDS: IBUPROFEN 600 MG TAB PO SCH ×2 (15:37→21:36)
[2021-11-30] MEDS: KETOROLAC 15 MG/ML 1 ML VIAL IVP SCH ×2 (15:38→21:40)
[2021-11-30] MEDS: SENNOSIDES-DOCUSATE SODIUM 1 EACH TAB PO SCH (21:35)
[2021-12-01] MEDS: ACETAMINOPHEN TAB 500 MG TAB PO SCH ×4 (00:35→23:45)
[2021-12-01] MEDS: LACTATED RINGERS 1,000 ML IV SCH (02:54)
[2021-12-01] MEDS: IBUPROFEN 600 MG TAB PO SCH ×3 (04:31→20:04)
[2021-12-01] MEDS: KETOROLAC 15 MG/ML 1 ML VIAL IVP SCH ×2 (05:40→13:24)
[2021-12-01 07:30] LABS: Basophils % (A) 0 %; Eosinophils # (A) 0.1 k/uL (0-0.7); Eosinophils % (A) 1 %; HCT 37.7 % (34.0-46.0); HGB 12.2 gm/dL (11.4-16.0); Lymphocytes # (A) 2.3 k/uL (1.0-4.8); Lymphocytes % (A) 18 %; MCHC 32.5 g/dL (31.0-37.0); MCV 89.5 fL (80.0-100.0); Mean Platelet Volume 9.4; Monocytes # (A) 0.7 k/uL (0-1.0); Monocytes % (A) 5 %; Neutrophils # (A) 9.5 k/uL (1.3-7.7); Neutrophils % (A) 75 %; Platelet Count 175 k/uL (150-450); RBC 4.21 m/uL (3.80-5.40); RDW 13.5 % (11.5-15.5); WBC 12.8 k/uL (3.8-10.6)
--- NOTE | 2021-12-01 08:01 | P.PNOBGPC ---
Subjective - Subjective Principal diagnosis: Postop day 1 Interval history: Feeling very well. Patient reports: Reports appetite normal, Reports voiding normally, Reports pain well controlled, Reports ambulating normally, Denies dizzy ambulation, Denies nauseated Mary Esther: doing well, nursing well Objective - Vital Signs Latest vital signs: Vital Signs Temp Pulse Resp BP Pulse Ox 12/01/21 04:00 98.1 F 93 16 128/69 98 12/01/21 00:00 97.7 F 84 16 128/75 99 11/30/21 20:00 97.9 F 91 16 126/72 96 11/30/21 16:00 97.9 F 91 16 115/74 98 11/30/21 11:05 96.7 F L 69 16 122/75 97 11/30/21 10:35 66 16 123/74 97 11/30/21 10:05 64 16 123/77 98 11/30/21 09:50 71 16 120/73 98 11/30/21 09:35 70 16 121/73 95 11/30/21 09:20 83 16 132/77 97 11/30/21 09:05 96.7 F L 83 16 133/79 98 Intake and Output 11/30/21 12/01/21 12/01/21 22:59 06:59 14:59 Output Total 475 500 Balance -475 -500 Output: Urine 475 500 Uretheral (Kincaid) 75 Other: # Voids 1 1 - Exam Abdomen: Present: normal appearance, soft. Absent: tenderness Incision: Present: normal, dry, intact. Absent: erythematous Uterus: Present: normal, firm. Absent: tenderness - Labs Labs: Abnormal Lab Results - Last 24 Hours (Table) 12/01/21 Range/Units 06:23 WBC 12.8 H (3.8-10.6) k/uL Neutrophils # 9.5 H (1.3-7.7) k/uL Assessment and Plan (1) 39 weeks gestation of Current Visit: Yes Status: Acute Code(s): Z3A.39 - 39 WEEKS GESTATION OF SNOMED Code(s): 47096384 (2) History of Current Visit: Yes Status: Acute Code(s): Z98.891 - HISTORY OF UTERINE SCAR FROM PREVIOUS SURGERY SNOMED Code(s): 181876934 Plan: Postop day 1 status post repeat low transverse section. Penile controlled, tolerating a general diet and ambulating and voiding without difficulty. Routine care today. Probable discharge home tomorrow.
[2021-12-01] MEDS: SENNOSIDES-DOCUSATE SODIUM 1 EACH TAB PO SCH ×2 (08:28→20:04)
--- NOTE | 2021-12-01 08:55 | P.PN ---
Progress Note - Text Progress Note Date: 12/01/21 (1454) Anesthesia Postop day 1 Subjective: Status Post section with Duramorph. Patient seen and examined. Doing well without complaint. VAS 0. No nausea or vomiting. Mild pruritus tolerable.. Afebrile. Gross lower extremity strength intact. . Without apparent anesthetic complications. Objective: Vital signs reviewed Heart: Regular Rate Lungs: Good chest excursion Abdomen: Appears nondistended Assessment: Status post with Duramorph postop day 1 Plan: Continue current care with your medical management.
--- NOTE | 2021-12-01 08:55 | P.PN ---
Progress Note - Text Progress Note Date: 12/01/21 (650) Anesthesia Postop day 1 Subjective: Status Post section with Duramorph. Patient seen and examined. Mild nausea mild pruritus both of now abated. VAS 2 out of 10. . Afebrile. Gross lower extremity strength intact. . Without apparent anesthetic complications. + Ambulation Objective: Vital signs reviewed Heart: Regular Rate Lungs: Good chest excursion Abdomen: Appears nondistended Assessment: Status post with Duramorph postop day 1 Plan: Continue current care with your medical management.
[2021-12-02 00:26] VITALS: TEMP 97.6
[2021-12-02] MEDS: IBUPROFEN 600 MG TAB PO SCH ×4 (04:56→12:23)
[2021-12-02] MEDS: ACETAMINOPHEN TAB 500 MG TAB PO SCH ×3 (08:04→12:24)
[2021-12-02] MEDS: SENNOSIDES-DOCUSATE SODIUM 1 EACH TAB PO SCH (08:07)
[2021-12-02 08:11] VITALS: BP 130/88; PULSE 89; RESP 16
--- NOTE | 2021-12-02 08:12 | P.DS ---
Providers Date of admission: 11/30/21 06:15 Expected date of discharge: 12/02/21 Attending physician: Sara Barrett Primary care physician: Stated None - Discharge Diagnosis(es) (1) 39 weeks gestation of Current Visit: Yes Status: Acute (2) History of Current Visit: Yes Status: Acute Hospital Course: This is a 31-year-old 2 now para 2 woman who is admitted at 39 weeks gestation for scheduled repeat low transverse section. had been complicated by the development of mild gestational hypertension however evaluation for preeclampsia was negative by 24-hour urine protein. Her was otherwise unremarkable. She has a remote history of cervical adenocarcinoma Following admission the patient underwent an uncomplicated repeat low transverse section. There was extensive scarring involving the fascia and rectus muscles and anterior abdominal wall special and the left side. Findings otherwise were significant for a female infant with Apgars of 8 at 1 minute and 9 at 5 minutes weighing 7 lbs. 1 oz.. In normal-appearing fallopian tubes uterus and ovaries. Her course was entirely unremarkable. By postoperative day #1 she was ambulating voiding without difficulty. Her pain was well-controlled. She was tolerating a general diet and oral pain medications. Her blood pressures remained stable and her lochia was decreasing. By postoperative day #2 she continued to do well. Her morning blood pressure was 130/88. She is elected to bottle feed. Her incision appears well healing with very mild ecchymosis, no erythema and is intact. She is 1+ bilateral lower extremity edema. She requested and was deemed medically stable for discharge home with routine instructions for care and follow-up. Procedures: Repeat low transverse section Patient Condition at Discharge: Good Plan - Discharge Summary New Discharge Prescriptions: New Sennosides-Docusate Sodium [Senokot-S] 2 each PO BID@0800,2000 tab Ibuprofen [Motrin] 600 mg PO Q6H tab Acetaminophen Tab [Tylenol] 1,000 mg PO Q6H tab No Action Pnv No.95/Ferrous Fum/Folic AC [ Multivitamin Tablet] 1 each PO DAILY Discharge Medication List Pnv No.95/Ferrous Fum/Folic AC [ Multivitamin Tablet] 1 each PO DAILY 09/07/19 [History] Acetaminophen Tab [Tylenol] 1,000 mg PO Q6H tab 12/02/21 [Rx] Ibuprofen [Motrin] 600 mg PO Q6H tab 12/02/21 [Rx] Sennosides-Docusate Sodium [Senokot-S] 2 each PO BID@0800,2000 tab 12/02/21 [Rx] Follow up Appointment(s)/Referral(s): Sara Barrett MD [STAFF PHYSICIAN] - 2 Weeks Activity/Diet/Wound Care/Special Instructions: Follow-up in 2 weeks after surgery in the office. Call the office with any concerning signs or symptoms including fever greater than 101, severe abdominal pain, heavy vaginal bleeding, signs of wound infection, increased swelling or redness of the lower extremities, signs of depression. No driving for 2 weeks after surgery. No heavy lifting or vigorous activity until reevaluated in the office. No intercourse for 6 weeks after delivery. Discharge Disposition: HOME SELF-CARE
== END 2021-12-02 13:40 | disposition home or self-care (01) | DRG 788 ==
LOC: 4FBP 06:15
PROVIDERS: ADMIT Obstetrics & Gynecology; ATTEND Obstetrics & Gynecology
PROC: 4A0HXCZ Measurement of Products of Conception, Cardiac Rate, External Approach (ICD-10-PCS; 2021-11-30)
PROC: 10D00Z1 Extraction of Products of Conception, Low, Open Approach (ICD-10-PCS; principal; 2021-11-30 08:00)
DX: O34.211 Maternal care for low transverse scar from previous cesarean delivery (principal); O16.4 Unspecified maternal hypertension, complicating childbirth; O24.92 Unspecified diabetes mellitus in childbirth; L29.9 Pruritus, unspecified; O99.73 Diseases of the skin and subcutaneous tissue complicating the puerperium; Z37.0 Single live birth; Z3A.39 39 weeks gestation of pregnancy; Z85.41 Personal history of malignant neoplasm of cervix uteri; Z86.32 Personal history of gestational diabetes
CPT/HCPCS: 85025; 86850; 86900; 86901